=== PATIENT | male | born 1955 | race Caucasian/White ===

== ENCOUNTER 2019-05-17 20:44 | Emergency (ER) | payer OTHER ==
[~2019-05-17] VITALS: Ht 175.3 cm; Wt 104.6 kg
[2019-05-17] MEDS ORDERED: LYRICA150 MG PO (20:54)
[2019-05-17] MEDS ORDERED: LIPITOR 20 MG T20 M1 PO (20:54)
[2019-05-17] MEDS ORDERED: FLOMAX0.4 MG PO (20:54)
[2019-05-17] MEDS ORDERED: BENICAR40 MG PO (20:55)
[2019-05-17] MEDS ORDERED: ALBUTEROL2.5 MG/31 INH (20:55)
[2019-05-17] MEDS ORDERED: SYMBICORT160 MCG/4. INH (20:55)
[2019-05-17] MEDS ORDERED: TESTIM5 GM TRANSDERM (20:56)
[2019-05-17] MEDS ORDERED: HUMALOG100 UNIT/1 SUBQ (20:56)
[2019-05-17] MEDS ORDERED: B COMPLEX1 EACH PO (20:57)
[2019-05-17] MEDS ORDERED: NON-ASPIRIN PA500 MG PO (20:57)
[2019-05-17] MEDS ORDERED: CALCIUM + D3 E1 EACH PO (20:58)
[2019-05-17] MEDS ORDERED: DULOXETINE HCL60 MG PO (20:58)
[2019-05-17] MEDS ORDERED: VYZULTA5 ML OPHTHALMIC (20:58)
[2019-05-17] MEDS ORDERED: SUPER THERAVIT1 EACH PO (20:58)
[2019-05-17] MEDS ORDERED: VITAMIN E1000 UNIT PO (20:59)
[2019-05-17] MEDS ORDERED: ZOLOFT100 MG PO (20:59)
[2019-05-17] MEDS ORDERED: COMPLETE OMEGA1 EACH PO (20:59)
[2019-05-17 21:24] LABS: ABSOLUTE BASOPHILS 0.1 thou/uL (0.0-0.2); ABSOLUTE EOSINOPHILS 0.1 thou/uL (0.0-0.7); ABSOLUTE LYMPHOCYTES 2.4 thou/uL (0.8-5.3); ABSOLUTE MONOCYTES 0.7 thou/uL (0.0-1.2); ABSOLUTE NEUTROPHILS 3.9 thou/uL (1.6-8.1); BASOPHILS 1.1 %; EOSINOPHILS 1.5 %; HEMATOCRIT 34.7 % (42.0-52.0); HEMOGLOBIN 12.3 gm/dL (14.0-18.0); LYMPHOCYTES 33.2 %; MCH 33.8 pg (26.0-34.0); MCHC 35.3 g/dL (28.0-37.0); MCV 95.6 fL (80.0-100.0); MONOCYTES 10.3 %; MPV 8.4 fl. (7.2-11.1); NUCLEATED RBCS 0 /100WBC; PLATELET COUNT* 204 thou/uL (150-400); POLYS 53.9 %; RBC 3.63 mil/uL (4.50-6.00); RDW-CV 12.5 % (10.5-14.5); WBC 7.2 thou/uL (4.0-11.0)
[2019-05-17 21:34] LABS: CREATININE 1.4 mg/dL (0.6-1.3); POTASSIUM 3.9 mmol/L (3.5-5.1)
[2019-05-17 21:44] LABS: ALBUMIN 3.4 g/dL (3.4-5.0); TOTAL BILIRUBIN 0.8 mg/dL (<0.1-1.0); TOTAL PROTEIN 6.7 g/dL (6.4-8.2)
[2019-05-17 22:12] LABS: URINE BILIRUBIN NEGATIVE (Negative); URINE BLOOD NEGATIVE (Negative); URINE CLARITY CLEAR; URINE COLOR YELLOW; URINE GLUCOSE-RANDOM 3+ (Negative); URINE KETONES NEGATIVE (Negative); URINE LEUKOCYTES-REFLEX NEGATIVE (Negative); URINE NITRITE-REFLEX NEGATIVE (Negative); URINE PROTEIN NEGATIVE (Negative); URINE SPECIFIC GRAVITY 1.015 (1.005-1.030)
[2019-05-17 22:36] VITALS: BP 167/91
--- NOTE | 2019-05-18 13:42 | EKG ---
[place] [address] ELECTROCARDIOGRAM REPORT Name: BISI LARIOS JR Room: [facility]#: [id number] Admission: 05/17/19 Attend Phys: Discharge: 05/17/19 Date of : 51 Report #: [id number] THIS REPORT FOR: //name// [facility] ED Test Date: 2019-05-17 Test Time: 21:08:48 Pat Name: BISI LARIOS Department: Room: Gender: M Student Accounts Manager: : 1955 Requested By: Ariel Woodson Order Number: [id number] MD: Dusty Galdamez Measurements Intervals [place] Rate: 76 P: 18 ID: 183 QRS: -26 QRSD: 95 T: 80 QT: 396 QTc: 446 Interpretive Statements Sinus rhythm Left anterior fascicular block RSR' in V1 or V2, probably normal variant No previous ECG available for comparison Electronically Signed On 05-18-2019 13:41:52 GUN STOCK CHECKER by Dusty Galdamez [email or web address] <ELECTRONICALLY SIGNED> By: Dusty Galdamez MD, [facility] 05/18/19 1341 07 07 Dusty Galdamez MD, FACC /EPI
== END 2019-05-17 22:38 | disposition home or self-care (01) ==
LOC: M.ERS 20:44
PROVIDERS: Emergency Medicine
DX: E11.65 Type 2 diabetes mellitus with hyperglycemia (principal); E11.40 Type 2 diabetes mellitus with diabetic neuropathy, unspecified; J44.9 Chronic obstructive pulmonary disease, unspecified; E11.22 Type 2 diabetes mellitus with diabetic chronic kidney disease; N18.9 Chronic kidney disease, unspecified; Z79.4 Long term (current) use of insulin; Z88.8 Allergy status to other drugs, medicaments and biological substances

== ENCOUNTER → 2021-02-25 | Outpatient (CLI) | payer OTHER ==
[~2021-02-25] MED LIST: ALBUTEROL2.5 MG/31 INH; B COMPLEX1 EACH PO; BENICAR40 MG PO; CALCIUM + D3 E1 EACH PO; COMPLETE OMEGA1 EACH PO; DULOXETINE HCL60 MG PO; FLOMAX0.4 MG PO; HUMALOG100 UNIT/1 SUBQ; LIPITOR 20 MG T20 M1 PO; LYRICA150 MG PO; NON-ASPIRIN PA500 MG PO; SUPER THERAVIT1 EACH PO; SYMBICORT160 MCG/4. INH; TESTIM5 GM TRANSDERM; VITAMIN E1000 UNIT PO; VYZULTA5 ML OPHTHALMIC; ZOLOFT100 MG PO
== END ==
LOC: M.CT 09:11
PROVIDERS: ATTEND Internal Medicine Cardiovascular Disease
DX: Z13.6 Encounter for screening for cardiovascular disorders (principal); I25.10 Atherosclerotic heart disease of native coronary artery without angina pectoris

== ENCOUNTER → 2021-03-24 | Outpatient (CLI) | payer OTHER ==
[~2021-03-24] VITALS: Ht 175.3 cm; Wt 91.3 kg
[2021-03-24] VITALS (9 sets, daily range): BP systolic 121–184; BP diastolic 64–77
[~2021-03-24] MED LIST changes: +ANDROGEL5 GM TOP; +CARVEDILOL12.5 MG PO; +MOBIC15 MG PO; +NORVASC10 MG PO; +OLMESARTAN-HCT1 EAC2 PO
[2021-03-24 09:29] LABS: HEMATOCRIT 37.8 % (42.0-52.0); HEMOGLOBIN 12.9 gm/dL (14.0-18.0); MCH 33.4 pg (26.0-34.0); MCHC 34.2 g/dL (28.0-37.0); MCV 97.8 fL (80.0-100.0); MPV 7.9 fl. (7.2-11.1); RBC 3.87 mil/uL (4.50-6.00); RDW-CV 12.9 % (10.5-14.5); WBC 7.5 thou/uL (4.0-11.0)
[2021-03-24 09:37] LABS: ANION GAP 8 mmol/L (7-16); BUN 34 mg/dL (7-18); CALCIUM 8.7 mg/dL (8.5-10.1); CHLORIDE 104 mmol/L (98-107); CO2 26 mmol/L (21-32); CREATININE 1.5 mg/dL (0.6-1.3); GLUCOSE 262 mg/dL (70-99); POTASSIUM 4.1 mmol/L (3.5-5.1); SODIUM 138 mmol/L (136-145)
--- NOTE | 2021-03-24 09:37 | EKG ---
[place] [address] ELECTROCARDIOGRAM REPORT Name: BISI LARIOS JR Room: [facility]#: [id number] Admission: 03/24/21 Attend Phys: Dusty Galdamez, Discharge: Date of : 51 Date of Service: 03/24/21925 Report #: [id number] THIS REPORT FOR: //name// [facility] Test Date: 2021-03-24 Test Time: 09:26:23 Pat Name: BISI LARIOS Department: Room: Gender: Legal Adviser: : 1955 Requested By: Dusty Galdamez Order Number: [id number] Reading MD: Dusty Galdamez Measurements Intervals [place] Rate: 65 P: 40 [place]: 182 QRS: -26 QRSD: 96 T: 131 QT: 416 QTc: 433 Interpretive Statements Sinus rhythm Borderline left axis deviation Abnormal T, consider ischemia, lateral leads Compared to ECG 05/17/2019 21:08:48 T-wave abnormality now present Possible ischemia now present Left anterior fascicular block no longer present Electronically Signed On 03-24-2021 9:37:36 CDT by Dusty Galdamez [email or web address] <ELECTRONICALLY SIGNED> By: Dusty Galdamez MD, FACC 03/24/2137 5 5 Dusty Galdamez MD, FACC /EPI
[2021-03-24 09:41] LABS: APTT 28.7 Seconds (25.0-31.3); INR 1.1; PROTIME 11.7 Seconds (9.20-11.50)
[2021-03-24 09:42] LABS: ALBUMIN 3.4 g/dL (3.4-5.0); ALKALINE PHOSPHATASE 83 U/L (46-116); CHOLESTEROL 145 mg/dL (<200); HDL CHOLESTEROL 62 mg/dL (>40); LDL CHOLESTEROL 69 mg/dL (<100); SGOT 78 U/L (15-37); SGPT 108 U/L (30-65); TC:HDL 2.3 Ratio (Not establshd); TOTAL BILIRUBIN 1.3 mg/dL (<0.1-1.0); TOTAL PROTEIN 6.8 g/dL (6.4-8.2); TRIGLYCERIDE 74 mg/dL (<150); VLDL 15 mg/dL (<40)
[2021-03-24 09:44] LABS: SERUM ASSESSMENT Clear
--- NOTE | 2021-03-24 16:13 | CARD ---
[address] [address] CARDIAC CATH REPORT Name: BISI LARIOS Room: [facility]#: [id number] Admission: 03/24/21 Attend Phys: Dusty Galdamez MD Discharge: Date of : 51 Report #: [id number] THIS REPORT FOR: cc: Kalia Chaudhry Steve T. DO Liston, Michael J. MD [facility] ~ APPROVED REPORT Study performed: 03/24/2021 09:05:50 Patient Details Patient Status: Out-Patient Room #: The patient is a 65 year-old male Event Personnel Dusty Galdamez Repairer Kiln Car, Cathie Summers RN RN, Everette Moffett RTR ScrubJacky Tina RN RN, Alex Worley PATTERNMAKER ALL AROUND Monitor Procedures Performed Left heart catheterization, coronary angiography and left ventriculography. Indication Positive stress test Risk Factors Hypercholesterolemia, Coronary Artery DiseaseHypertension Procedure Narrative A [place] 6 FR sheath was inserted into the . Coronary angiography was performed using coronary diagnostic catheters. The right coronary system was accessed and visualized with a Diagnostic - JR4 catheter. The left coronary system was accessed and visualized with a Diagnostic - JL4 catheter. The left ventricle was accessed and visualized with a Diagnostic - Str PIG catheter. Closure device was deployed with a Fr MynxGrip 6/7F. The patient tolerated the procedure well and there were no complications associated with the procedure. There was no hematoma. Intraoperative Conscious Sedation Sedation start time: 950 Case end Time: 957 Vers[place] [address] [place] [address] CARDIAC CATH REPORT Name: BISI LARIOS JR Room: [facility]#: [id number] Admission: 03/24/21 Attend Phys: Dusty Galdamez MD Discharge: Date of : 51 Report #: [id number] Fluoro Time: 1.4 minutes Dose: DAP 23338 cGycm2 737 mGy Contrast Type and Amount: Visipaque 80 mL Diagnostic Cath Left Main The left main coronary artery is normal and bifurcates into a left anterior descending and circumflex coronary artery. LAD Left anterior descending coronary artery exhibits mild plaquing in the proximal and midportion of approximately 10 to 20% sequentially. The distal vessel appears free of significant disease. Diagonal 1 The first diagonal has an ostial 10% narrowing. The remainder the vessel is free of significant disease. Diagonal 2 The second diagonal has a 50% proximal narrowing. The remainder the vessel is free of significant disease. Circumflex The circumflex coronary artery has mild 10% plaquing distally. OM1 The first obtuse marginal branch is normal. OM2 The second obtuse marginal branch is normal. Right Coronary The right coronary artery exhibits mild diffuse plaquing with 10% plaquing in the proximal mid and distal portion. R PDA The right PDA has 10% proximal plaquing. The remainder of the vessel is free of significant disease. RPLV The right posterior lateral LV branch has 10% plaquing proximally. The remainder of the vessel is free of significant disease. Left Ventriculography The left ventricle is normal in size with normal contractility. The left ventricular ejection fraction is estimated to be 60%. Left ventricular wall motion abnormalities are not present. Hemodynamics The aortic pressure is 161/70 mmHg with a mean of 91 mmHg. The left ventricular pressure is 151/9 mmHg with a mean of mmHg. The left ventricular end diastolic pressure is 15 mmHg. Conclusion 1. Minimal nonocclusive coronary artery disease as outlined above. 2. Normal left ventricular systolic function. 3. Minimally elevated left ventricular end-[place] [address] CARDIAC CATH REPORT Name: BISI LARIOS Room: [facility]#: [id number] Admission: 03/24/21 Attend Phys: Dusty Galdamez MD Discharge: Date of : 51 Report #: [id number] Recommendations Medical management1. Continue aggressive risk factor modification. <ELECTRONICALLY SIGNED> By: Dusty Galdamez MD, [facility] 03/24/21 1613 161 [id number] Galdamez MD, FACC /INF
== END | disposition home or self-care (01) ==
LOC: M.CL 03-10 10:00
PROVIDERS: ATTEND Internal Medicine Cardiovascular Disease
DX: R94.39 Abnormal result of other cardiovascular function study (principal); I25.10 Atherosclerotic heart disease of native coronary artery without angina pectoris; I10 Essential (primary) hypertension; E78.00 Pure hypercholesterolemia, unspecified; E11.9 Type 2 diabetes mellitus without complications; J44.9 Chronic obstructive pulmonary disease, unspecified; Z98.890 Other specified postprocedural states; Z79.899 Other long term (current) drug therapy; Z20.822 Contact with and (suspected) exposure to COVID-19; Z87.891 Personal history of nicotine dependence; Z90.49 Acquired absence of other specified parts of digestive tract; Z88.8 Allergy status to other drugs, medicaments and biological substances